=== PATIENT | female | born 1955 | race Caucasian/White ===

== ENCOUNTER 2018-02-14 09:09 | Day surgery (SDC) | payer OTHER ==
[2018-02-14] MEDS ORDERED: Lactated Ringer's 500 ML IV ONE (10:32)
[2018-02-14] MEDS ORDERED: Propofol 10 mg/ml Inj (20 ML) ONE (11:06)
[2018-02-14 11:51] VITALS: O2SAT 100
[2018-02-14 11:56] VITALS: TEMP 96.9
[2018-02-14 12:14] VITALS: BP 141/81; PULSE 58; RESP 14
== END 2018-02-14 12:47 | disposition home or self-care (01) ==
LOC: H.ENDO 09:09
PROVIDERS: ATTEND Internal Medicine Gastroenterology
DX: K30 Functional dyspepsia (principal); E11.9 Type 2 diabetes mellitus without complications; E78.5 Hyperlipidemia, unspecified; I10 Essential (primary) hypertension; K44.9 Diaphragmatic hernia without obstruction or gangrene; K31.89 Other diseases of stomach and duodenum; K29.80 Duodenitis without bleeding; K29.50 Unspecified chronic gastritis without bleeding
CPT/HCPCS: 43239; 88305; J2001; J2704; J7120